=== PATIENT | female | born 1950 | race Caucasian/White ===

== ENCOUNTER → 2022-01-08 | Outpatient (CLI) | payer MEDICARE ==
[~2022-01-08] MED LIST: CIPR500T94 PO; LEVO112T4 PO; LEVO25TA4 PO; LISI10TA16 PO; LISI5TAB15 PO; METR500T PO; NITR100C62 PO; ONDA4TAB10 PO; OXYC1TAB7 PO; PHEN-444 PO; TAMS0.4C97 PO
--- NOTE | 2022-01-09 11:43 | RAD ---
EXAM: Abdomen sonogram. HISTORY: Elevated liver function laboratory values. TECHNIQUE: Sonographic imaging of the abdomen was performed. COMPARISON: None. FINDINGS: The liver is upper normal in size. There is mild hepatic steatosis. No focal hepatic lesion is seen. The common bile duct is normal in caliber. The gallbladder is surgically absent. The right kidney is unremarkable. The pancreas and inferior vena cava are obscured due to bowel gas. IMPRESSION: 1. Hepatic steatosis. 2. Cholecystectomy. Electronically signed by: Brenda Jones MD (01/09/2022 10:33 AM) [facility]
== END ==
LOC: US 14:08
PROVIDERS: ATTEND Internal Medicine
DX: K76.0 Fatty (change of) liver, not elsewhere classified (principal); R79.89 Other specified abnormal findings of blood chemistry; Z90.49 Acquired absence of other specified parts of digestive tract
CPT/HCPCS: 76705